=== PATIENT | female | born 1930 | race American Indian/Alaskan Native ===

== ENCOUNTER 2021-10-14 14:42 | Outpatient (CLI) | payer MEDICARE ==
[2021-10-14 16:00] LABS: Basophils # (Auto) 0.1 K/mm3 (0.0-0.1); Basophils % (Auto) 1.2 % (0.0-1.8); Eosinophils # (Auto) 0.5 K/mm3 (0.0-0.4); Hematocrit 36.6 % (30.3-42.9); Hemoglobin 11.9 gm/dl (10.1-14.3); Lymphocytes % (Auto) 13.7 % (13.4-35.0); Mean Corpuscular HGB Conc 33 % (30-34); Mean Corpuscular Volume 76 fl (79-97); Monocytes # (Auto) 0.3 K/mm3 (0.0-0.8); Monocytes % (Auto) 4.1 % (0.0-7.3); Platelet Count 286 K/mm3 (140-440)
[2021-10-14 16:02] LABS: Red Cell Distribution Width 20.1 % (13.2-15.2)
[2021-10-14 16:10] LABS: Albumin 4.1 g/dL (3.9-5); Calcium 9.4 mg/dL (8.4-10.2)
== END 2021-10-14 14:43 | disposition home or self-care (01) ==
LOC: EDBD → LABHHL 14:42
PROVIDERS: ATTEND Internal Medicine
DX: I10 Essential (primary) hypertension (principal); J18.9 Pneumonia, unspecified organism; E03.9 Hypothyroidism, unspecified; E78.5 Hyperlipidemia, unspecified
CPT/HCPCS: 36415; 80053; 84443; 85025

== ENCOUNTER 2021-10-14 15:27 | Outpatient (CLI) | payer MEDICARE ==
--- NOTE | 2021-10-14 16:11 | XRay Report ---
CHEST 2 VIEWS INDICATION / CLINICAL INFORMATION: PNEUMONIA. COMPARISON: August 12, 2021 FINDINGS: SUPPORT DEVICES: None. HEART / MEDIASTINUM: No significant abnormality. LUNGS / PLEURA: Mild increased interstitial process in bilateral pulmonary opacities. Bilateral perih ilar opacities and prominence. No pneumothorax. Signer Name: Quan Gonzalez MD Signed: 10/14/2021 4:06 PM Workstation Name: [id number]
== END 2021-10-14 15:28 | disposition home or self-care (01) ==
LOC: XRAY 15:27 → EDBD 15:27 → XRAY 15:28
PROVIDERS: ATTEND Internal Medicine
DX: J18.9 Pneumonia, unspecified organism (principal); R91.8 Other nonspecific abnormal finding of lung field
CPT/HCPCS: 71046